=== PATIENT | male | born 1970 | race Caucasian/White ===

== ENCOUNTER 2025-03-10 05:59 | Emergency (ER) | payer BC, SELFPAY ==
[2025-03-10 05:59] VITALS: BMI 27.7
[2025-03-10 06:05] VITALS: BP 124/92
[2025-03-10 06:20] VITALS: BP 128/105
[2025-03-10] MEDS: TYLENOL 1000 MG PO (06:32)
[2025-03-10] MEDS: ADACEL 0.5 ML IM (06:34)
--- NOTE | 2025-03-10 07:01 | ED.GENMED ---
History of Present Illness
General
Chief Complaint: Fall
Source: patient
Exam Limitations: none
Time Seen by Provider: 03/10/25 06:13
Nursing documentation reviewed up to this point in time: agreed with
History of Present Illness
History of Present Illness:
54 y/o M with no pmh
here with multiple complaints following a fall while trying to break up fight between his 2 dogs and the neighbor's dog while walking them this am just finish remover
pt says his dog pulled him and he was wrestling with him and inthe process, hit the tpo of his head on the ground, R shoulder bruise, R elbow abrasion, knee abrasions and L hand puncture dog bite wound
pt thinks his tetanus > 5 years
pain is mostly in the shoulder 07/05 with omvement
no numbness/tingling
denies neck pain, vomiting, LOC, thinners, cp, sob, abd pain, hip pain
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
Past History
Past History
ED Past Medical History: None
ED Past Surgical History: None
Social History
Tobacco: Non-smoker
Review of Systems
Review of Systems
Allergies reviewed?: Yes
All Other Systems: Not applicable
Phy Exam
Physical Exam
Physical Exam:
GENERAL: Alert , in no apparent distress
HEAD: abrasion top of scalp
NECK: no midline tenderness, active ROM intact, no paraspinal muscle tenderness;
EYE: pupils equal and reactive, EOMs intact.
ENT: o/p clr, mmm. no hemotympanum
CARDIAC: Regular rate and rhythm, no edema
LUNGS: Clear breath sounds bilaterally, no acute respiratory distress, no wheezes/rales/rhonchi
ABDOMEN: Soft, without focal tenderness, no r/g, no cvat
NEUROLOGICAL: Alert and oriented, no focal neuro deficits, CN intact, 5/5 strength, sensation intact
SKIN: Warm and dry, superficial abrasions R elbow posterior
top of scalp abrasion
small puncture L dorsal hand
MUSCULOSKELETAL: R shoulder tender right lateral limited extension due to pain
able to ABDuct and rotate
elbow nontender, just abrasions
nv intact
left hand normal ROM, puncture woung but otherwise nontender
PSYCH: Normal and appropriate interaction.
Course
Orders/Labs/Results
Orders:
Orders
03/10/25 06:26
CT Head W/o Iv Contrast Urgent
Comment:
Reason For Exam: fall hit head
Acetaminophen [Tylenol] 1,000 mg PO NOW STA
Tetanus/Diphth/Acelpertussis [Adacel] 0.5 ml IM .ONCE ONE
CR Shoulder, Trauma - Right Urgent
Comment:
Reason For Exam: R shoulder pain fall
03/10/25 06:27
CR Hand - Left Min 3 Views Urgent
Comment:
Reason For Exam: puncture dog bite
03/10/25 07:52
Amoxicillin 875 mg/Clav 125 mg [Augmentin 875 mg/125 mg] 1 tablet PO NOW STA
03/10/25 08:08
Sling Right-Treatment ONCE
Vital Signs
Initial and Last Documented VS:
Initial Vital Signs
Temp Pulse Resp BP Pulse Ox
36.5 C 97 20 124/92 93
03/10/25 06:05 03/10/25 06:05 03/10/25 06:05 03/10/25 06:05 03/10/25 06:05
Last Documented Vital Signs
Temp Pulse Resp BP Pulse Ox
36.5 C 97 20 128/105 96
03/10/25 06:05 03/10/25 06:05 03/10/25 06:05 03/10/25 06:20 03/10/25 06:20
MDM/Problems Addressed
Differential Diagnosis Includes:
fall, fracture shoulder, sprain shoulder, head injury, dog bite, abrasion
MDM/Problems Addressed:
54 y/o M healthy
trying to break up dog fight got bit L hand and had a fall with head strike, abrasions, dog bite,
no loc
no thiinners
neuro intact
wound superficial except small puncture L hand
R shoulder most painful with limited extension but no dislocation, some bruising
nv intact
xrays indep reviewed, i note the small fb or radioopaque spots on the shoulde rxry, asked pt about it, no concern for fb;unclear where they are from
no fracture
L hand indep reviewede, neg
head ct neg
shoulder sling, nsaids, tylenol, wound care augmentin
*Critical Care Note
Total Time (30-74mins, 75-104mins- exclusive of procedures): Not Applicable
ED Attending Note
-
Portions of this chart may have been created with voice recognition software.� Occasional wrong word or��sound alike� substitutions may have occurred due to the inherent limitations of voice recognition software.
Discharge Plan
Departure
Patient Disposition: Home (Routine Discharge)
Date of Disposition: 03/10/25
Time of Disposition: 08:03
Patient with high blood pressure during this ER visit?: Yes
Condition: Fair
Covid-19: Not Applicable
Discharge Problem:
Sprain of right shoulder, Minor head injury, Dog bite, hand, Abrasion
Instructions: Minor Head Injury (DC), Skin Abrasions (DC), Animal bites - ED discharge instructions
Prescriptions:
New
amoxicillin-pot clavulanate 875-125 mg tablet
1 tab PO BID Qty: 14 0RF
Referrals:
Ilsa Marquez DO [Family Provider] -
Feliberto Martínez MD [Active] - Follow up in 5-7 days
Activity Restrictions/Additional Instructions:
Your head CT was negative. You probably just have a minor head injury and not a full concussion but if you start to develop concussive symptoms like dizziness, nausea, fatigue, brain fog you should then avoid computer, reading, TV, cell phone
because all of these activities promote headaches and delay healing for your brain. Do this for 2 days and then you could return to normal activity.
Otherwise if you do not have any concussive symptoms you can go back to normal activity immediately. Tylenol and ibuprofen every 6 and 8 hours for pain. Ice off-and-on to what hurts. Soap and water to your wounds twice a day, dressings, watch for
signs of infection. To prevent dog bite infection take Augmentin twice a day for 7 days. You were given a tetanus shot. You can use the sling on your shoulder to rest it for 2 days or so. If you are still having pain after that you should
follow-up with an orthopedist. Make sure to take your arm out of the sling every few hours and rotate it so it does not get a frozen shoulder. Return for any concerns
Interventions
Interventions:
*Risk Screen - Suicide Last Done: 03/10/25 06:05
*General Assessment Last Done: 03/10/25 06:05
*Neglect/Abuse Screening Last Done: 03/10/25 06:05
*ED- Fall Risk Assessment Last Done: 03/10/25 06:05
*ED COVID-19 Vaccine History Last Done: 03/10/25 06:05
*Nursing Disposition Last Done: 03/10/25 08:25
ED-Musculoskeletal Assessment Last Done: 03/10/25 06:26
ED- Neurological Assessment Last Done: 03/10/25 06:26
ED-Skin Assessment Last Done: 03/10/25 06:22
Discharge Date and Time
Discharge Date/Time: 03/10/25 08:25
Print Language: [place]
[2025-03-10] MEDS: AUGMENTIN 875 MG/125 MG 1 TABLET PO (08:22)
== END 2025-03-10 08:25 | disposition home or self-care (01) ==
LOC: EMR 05:59
PROVIDERS: EMERGENCY PHYSICIAN Emergency Medicine; FAMILY PHYSICIAN Internal Medicine
DX: S43.401A Unspecified sprain of right shoulder joint, initial encounter (principal); S09.90XA Unspecified injury of head, initial encounter; S61.452A Open bite of left hand, initial encounter; S50.311A Abrasion of right elbow, initial encounter; S80.219A Abrasion, unspecified knee, initial encounter; W54.0XXA Bitten by dog, initial encounter; Y93.01 Activity, walking, marching and hiking; Y93.72 Activity, wrestling; Z23 Encounter for immunization
CPT/HCPCS: 99284; 90471; 70450; 73030; 73130; 90715